=== PATIENT | female | born 1975 | race Caucasian/White ===

== ENCOUNTER 2017-01-05 08:25 | Inpatient (IN) | payer OTHER ==
[2017-01-05 09:25] VITALS: BMI 30.2
--- NOTE | 2017-01-05 10:25 | HP ---
Past Medical History - Primary Care Physician PCP:: Domi Cordoba - Admission Chief Complaint: 41 yrs ( AMA) ,[place] female, 39 weeks, previous c/ section x2, requests for repeat c/section History of Present Illness: PNC at , [facility], late registrant , wt gain 10 lbs . work uP: A Pos, Hbsag neg, Rubella pos, Quantiferon neg, Hiv neg, Gc/ Ct neg, GBS neg 1 Hr GTT 159, 3 Hr GTT( wnl) 85,153, 151,142. h/o proteinuria noted during AP period, 24 hr urine protein wnl -270 mg , HELLP work up wnl, PlT f/u was done NST were done in last 2 wks due to proteinuria sono done was normal done on 11/07/16 30.5 weeks , last sono on12/28/16 37.4 wks, MARY 10.7 wks, Bpp8/8, efw 3613 gm History Source: Patient, Medical Record Limitations to Obtaining History: No Limitations - Past Medical History COAT CUTTER: No: Migraine, Seizure Cardiovascular: No: HTN, Murmur Pulmonary: Yes: Asthma (last attack 12/30/16) Gastrointestinal: Yes: Gastritis. No: Constipation ...: 5 ...Para: 2 ...Term: 2 ...: 0 ...Spon : 2 ...Induced : 0 ...Multiple Gestation: 0 ... Weeks Gestation by Dates: 39 (edc is assigned by sono on 11/07/16 sono 30.5 weeks due to dates & size , difference ) ...EDC by Sono: 01/11/17 Additional OB History: 40 weeks, c/section [facility] 27/10/2010 40 weeks, repeat c/sectio, [facility] Heme/Onc: No: Anemia Infectious Disease: No: HIV, STD's Psych: No: Addictions, Anxiety, Bipolar, Depression, Panic Endocrine: No: Diabetes Insipidus, Diabetes Mellitus - Past Surgical History Past Surgical History: Yes: (07/13, 12/13) Hx Myomectomy: No Hx Transabdominal Cerclage: No - Smoking History Smoking history: Never smoked Have you smoked in the past 12 months: No - Alcohol/Substance Use Hx Alcohol Use: No History of Substance Use: reports: None - Social History History of Recent Travel: No Home Medications - Allergies Allergies/Adverse Reactions: Allergies Allergy/AdvReac Type Severity Reaction Status Date / Time famotidine [From Pepcid] AdvReac Mild Verified 01/05/17 09:36 ranitidine HCl [From Zantac] AdvReac Mild Verified 01/05/17 09:36 nuts Allergy Severe Swelling Uncoded 01/05/17 09:47 - Home Medications Home Medications: Ambulatory Orders Budesonide/Formeterol Fumarate [SYMBICORT 160/4.5mcg -] 1 inh PO DAILY 12/28/16 Ferrous Sulfate 325 mg PO DAILY 12/28/16 Tablet 1 mg PO DAILY 12/28/16 Physical Exam - Maternity Vital Signs: Vital Signs Temperature 97.8 F 01/05/17 08:25 Pulse Rate 95 H 01/05/17 08:25 Respiratory Rate 18 01/05/17 08:25 Blood Pressure 130/80 01/05/17 08:25 O2 Sat by Pulse Oximetry (%) Constitutional: Yes: Well Nourished, No Distress Eyes: Yes: WNL HENT: Yes: WNL, Normocephalic Neck: Yes: WNL Cardiovascular: Yes: WNL, Regular Rate and Rhythm Lungs: Clear to auscultation Breast(s): Yes: WNL - Abdominal Exam/OB Fundal Height: 38 Number of Fetuses: Single Presentation: Vertex Contractions: Yes Regularity: Irregular Intensity: Unaware Monitor Mode: External Heart Rate (range): 150 Heart Rate Location: [facility] Category: I Accelerations: Uniform Decelerations: None - Vaginal Exam/OB Vaginal Bleediing: No Speculum Exam: No Dilatation (cm): close Effacement (%): unefface Amniotic Membrane Status: Intact Presentation: Vertex/Position Station: -3 - Physical Exam Musculoskeletal: Yes: WNL Extremities: Yes: WNL. No: Calf Tenderness Edema: Yes Edema: LLE: 1+, RLE: 1+ Integumentary: Yes: Incision (old pfannensteil scar) Deep Tendon Reflex Grade: Normal +2 ...Motor Strength: WNL Psychiatric: Yes: WNL, Alert, Oriented - Labs Lab Results: Laboratory Tests 11/29/10 12/06/10 12/28/16 13:28 09:00 12:20 WBC RBC Hgb Hct Plt Count Lymphocytes # 20.5 Basophils # 0.6 Neutrophils % INR Sodium Serum Potassium 4.0 Potassium Chloride Carbon Dioxide BUN Creatinine Random Glucose Uric Acid 5.8 Calcium GGT 27 AST ALT Urine Protein Urine Ketones Ur Leukocyte Esterase Urine RBC Urine WBC RPR Titer 01/03/17 01/03/17 01/03/17 11:53 11:53 11:53 WBC 8.0 RBC 4.10 Hgb 12.9 Hct 36.9 Plt Count 140 Lymphocytes # Basophils # Neutrophils % 72.3 INR 0.97 Sodium 137 Serum Potassium Potassium 3.7 Chloride 102 Carbon Dioxide 21 BUN 8 Creatinine 0.6 Random Glucose 126 H Uric Acid Calcium 8.6 GGT AST 14 L ALT 17 Urine Protein Urine Ketones Ur Leukocyte Esterase Urine RBC Urine WBC RPR Titer 01/03/17 01/03/17 11:53 11:53 WBC RBC Hgb Hct Plt Count Lymphocytes # Basophils # Neutrophils % INR Sodium Serum Potassium Potassium Chloride Carbon Dioxide BUN Creatinine Random Glucose Uric Acid Calcium GGT AST ALT Urine Protein 1+ H Urine Ketones 1+ H Ur Leukocyte Esterase 2+ H Urine RBC 5 Urine WBC 9 RPR Titer Nonreactive Problem List - Problems (1) with 39 completed weeks gestation Code(s): Z3A.39 - 39 WEEKS GESTATION OF (2) Previous section complicating Code(s): O34.219 - MATERNAL CARE FOR UNSP TYPE SCAR FROM PREVIOUS DEL (3) AMA (advanced maternal age) multigravida 35+ Code(s): O09.529 - SUPERVISION OF ELDERLY MULTIGRAVIDA, UNSPECIFIED TRIMESTER Qualifiers: Trimester: unspecified trimester Qualified Code(s): O09.529 - Supervision of elderly multigravida, unspecified trimester Assessment/Plan 41 yrs (AMA) , 39 weeks, previous c/section x2 , requests for repeat c/ section, GBS neg Plan Repeat c/section .
[2017-01-05] MEDS ORDERED: morphine SULFATE/Preservative Free 0.5 MG/ML (1cc Syringe) EP ONE (10:43)
[2017-01-05] MEDS ORDERED: ELECTROLYTE-148 SOLN 500 ML IV ONE (11:00)
[2017-01-05] MEDS ORDERED: CITRIC ACID/SODIUM CITRATE 30 ML UNIT-DOSE CUP PO ONE (11:00)
[2017-01-05] MEDS ORDERED: IBUPROFEN 800 MG/8 ML IJ IVPB PRN (11:46)
[2017-01-05] MEDS ORDERED: ACETAMINOPHEN 325 MG TABLET (FP) PO PRN (11:46)
[2017-01-05] MEDS ORDERED: METHYLERGONOVINE MALEATE 0.2 MG/1 ML AMP IM PRN (11:46)
[2017-01-05] MEDS ORDERED: ONDANSETRON 4 MG/2 ML VIAL IVPB PRN (11:49)
[2017-01-05] MEDS ORDERED: IBUPROFEN 600 MG TABLET (FP) PO PRN (11:49)
[2017-01-05] MEDS ORDERED: D5W-LR W/ 20 UNITS OXYTOCIN 1,000 ML IV SCH (11:50)
--- NOTE | 2017-01-05 11:56 | PN ---
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 . PNC at , [facility]. Late registrant Intraop course was uneventful. 1 gm IVAncef prior to incision was given ,
[2017-01-05] MEDS ORDERED: ELECTROLYTE-148 SOLN 1,000 ML IV SCH (12:00)
--- NOTE | 2017-01-05 12:03 | OP ---
Operative Note - Note: Operative Date: 01/05/17 Pre-Operative Diagnosis: 39 weeks, previous c/sectionx2, requests repeat c/ section Operation: Repeat LFTC/section Findings: 10.57 am,Baby Girl, 9/10, /Wt7'4" //Vx/ROT Both tubes & ovaries normal Dr Mclaughlin Neonatolgist present in the room Surgeon: Domi Cordoba Rubber Insulator: Tahir Robles Anesthesiologist/CREDIT DEPARTMENT MANAGER: Freedom Fry Anesthesia: Spinal Specimens Removed: placenta. cord blood Estimated Blood Loss (mls): 500 (200ml ) Drains, Volume Out (mls): 200 (peters output, terell color ) Fluid Volume Replaced (mls): 2,300 (Iv Ancef 1 gm ivpb ) Operative Report Dictated: Yes
[2017-01-05] MEDS ORDERED: CEFAZOLIN (PRE-DOCKED) 50 ML IVPB ONE (16:50)
[2017-01-05] MEDS ORDERED: ALBUTEROL SO4 6.7 GM HFA INHALER IH PRN (16:53)
[2017-01-05] MEDS ORDERED: CEFAZOLIN 1 GM/D5W 50 ML IVPB SCH (18:00)
[2017-01-06] MEDS ORDERED: CEFAZOLIN (PRE-DOCKED) 50 ML IVPB ONE (02:00)
[2017-01-06] MEDS: IBUPROFEN 600 MG TABLET (FP) PO PRN ×2 (06:22→17:08)
[2017-01-06] MEDS: ACETAMINOPHEN 325 MG TABLET (FP) PO PRN ×2 (06:23→17:09)
[2017-01-06] MEDS ORDERED: oxyCODONE HCL 5 MG TABLET PO PRN ×2 (08:00)
[2017-01-06 08:11] LABS: BASOPHIL 0.3 % (0-2.0); EOSINOPHIL 0.7 % (0-4.5); MCH 31.6 pg (25.7-33.7); MCHC 34.7 g/dl (32.0-36.0); MEAN CELL VOLUME 90.9 fl (80-96); MEAN PLT VOLUME 8.1 fl (7.5-11.1); NEUTROPHILS 77.8 % (42.8-82.8); PLATELET COUNT 99 K/MM3 (134-434); RDW 15.6 % (11.6-15.6); WHITE BLOOD COUNT 10.8 K/mm3 (4.0-10.0)
--- NOTE | 2017-01-06 08:51 | PN ---
Progress Note, Physician Chief Complaint: Pt. ambulating and voiding, pain controlled, no anesthesia complaints. - Current Medication List Current Medications: Active Medications Acetaminophen (Tylenol -) 650 mg PO Q4H PRN PRN Reason: FEVER OR PAIN Last Admin: 01/06/17 06:23 Dose: 650 mg Acetaminophen (Tylenol -) 650 mg PO Q4H PRN PRN Reason: FEVER OR PAIN Albuterol Sulfate (Ventolin Hfa Inhaler -) 2 puff IH Q4H PRN PRN Reason: SHORTNESS OF BREATH Bisacodyl (Dulcolax Suppository -) 10 mg RC PRN PRN PRN Reason: CONSTIPATION Diphenhydramine HCl (Benadryl Injection -) 25 mg IVPUSH Q4H PRN PRN Reason: Pruritis Enoxaparin Sodium (Lovenox -) 40 mg SQ DAILY SIDDHARTHA Ferrous Sulfate (Feosol -) 325 mg PO BID [facility] Dextrose/Lactated Ringer's (Pitocin 20 Units In D5-Lr -) 1,000 mls @ 125 mls/ hr IV ASDIR SIDDHARTHA Last Admin: 01/05/17 11:50 Dose: 125 mls/hr Ibuprofen (Motrin -) 600 mg PO Q4H PRN PRN Reason: PAIN Last Admin: 01/06/17 06:22 Dose: 600 mg Ibuprofen (Caldolor Injection -) 800 mg IVPB Q8H PRN PRN Reason: PAIN OR FEVER Stop: 01/06/17 11:45 Last Admin: 01/05/17 12:46 Dose: 800 mg Methylergonovine Maleate (Methergine Injection -) 0.2 mg IM Q4H PRN PRN Reason: Excessive Bleeding (L&D) Oxycodone HCl (Roxicodone -) 5 mg PO Q4H PRN PRN Reason: PAIN LEVEL 1-5 Oxycodone HCl (Roxicodone -) 10 mg PO Q4H PRN PRN Reason: PAIN LEVEL 6-10 Pneumococcal 13-Valent Conj Vacc (Prevnar 13 Syringe -) 0.5 ml IM .ONCE ONE Stop: 01/06/17 14:01 Multivit/Folic Acid/Iron ( Vitamins ([facility]) -) 1 tab PO DAILY SIDDHARTHA Senna/Docusate Sodium (Pericolace -) 2 tablet PO HS PRN PRN Reason: CONSTIPATION Simethicone (Mylicon -) 80 mg PO Q4H PRN PRN Reason: GAS - Objective Vital Signs: Vital Signs Temperature 98.5 F 01/06/17 06:00 Pulse Rate 91 H 01/06/17 06:00 Respiratory Rate 20 01/06/17 06:06 Blood Pressure 111/68 01/06/17 06:00 O2 Sat by Pulse Oximetry (%) 100 01/05/17 12:30 Constitutional: Yes: Well Nourished, No Distress, Calm Musculoskeletal: Yes: WNL Neurological: Yes: WNL, Alert, Oriented ...Motor Strength: WNL Labs: CBC, BMP 01/06/17 07:25 Assessment/Plan POD#1 s/p repeat under spinal with duramporph. Doing well D/C from anesthesia care.
[2017-01-06] MEDS: PRENATAL VITAMINS W/ FOLIC ACID TABLET (FP) PO SCH (09:26)
[2017-01-06] MEDS: ENOXAPARIN NA (PORCINE) 40 MG/0.4 ML DISP.SYRIN SQ SCH (09:26)
--- NOTE | 2017-01-06 09:54 | PN ---
Progress Note (short form) - Note Progress Note: pod 1 s/p c/s c/o low abdominal cramps, no excess vaginal bleeding CBC, BMP 01/06/17 07:25 Last Vital Signs Temp Pulse Resp BP Pulse Ox 98.5 F 91 H 20 102/60 100 01/06/17 07:30 01/06/17 07:30 01/06/17 08:00 01/06/17 07:30 01/05/17 12:30 abdomen soft , no distension, incisional tenderness incision dry. no calf tenderness no excess vaginal bleeding plan pain management, ambulate, advance diet
--- NOTE | 2017-01-06 11:11 | OP ---
DATE OF OPERATION: 01/05/2017 PREOPERATIVE DIAGNOSIS: At 39 weeks, previous sections x2, request for repeat section. OPERATION DONE: A repeat low flap transverse section. SURGEON: Karlene Murphy MD SPOUT TENDER SURGEON: DENYS Guzman ANESTHESIOLOGIST: Freedom Fry MD ANESTHESIA: Spinal. FINDINGS: This is a 41-year-old 5 para 2-0-2-2, 39 weeks , not in labor, request for repeat . PROCEDURE: Patient was taken to the operating room table. Spinal anesthesia was given. Back catheter was placed. Abdomen was painted and draped in the usual manner. Pfannenstiel incision was made through previous scar, the skin, subcutaneous tissue, and anterior rectus sheath was incised transversely. Bleeding points were clamped and cauterized. The rectus muscles were from the rectus sheath. Parietal peritoneum was opened vertically, lower flap of the peritoneum was incised transversely. The bladder was pushed down. Uterine segment was isolated, and lower uterine segment was incised transversely. Amniotic fluid was clear. Baby was delivered at 10:57 a.m. from ROT position. Apgars were 9, 10, and babys weight was 7 pounds, 4 ounces. Cord was clamped. Cord blood was collected. Dr. Marin, the roof plumber, was present in the room. Placenta was removed completely with the membranes. The uterine cavity was cleaned, and uterine incision was closed in 2 layers, first layer continuous locking with a Biosyn 0 suture, second layer was closed with a continuous intermittently locking and vertical mattress sutures with Biosyn 0 sutures. Hemostasis was checked. Bladder peritoneum was closed with Biosyn 0 suture. Both tubes and ovaries were normal. Irrigation was done. Then, closure of the abdomen was done. Before that, the sponge, instrument and need counts were correct. The parietal peritoneum was closed with Vicryl 0 suture. Muscles were approximated with interrupted Vicryl 0 sutures. Then, under the rectus sheath flaps, hemostasis was verified. Then, the rectus sheath was closed with a Vicryl 0 continuous suture. Hemostasis was checked in subcutaneous tissue. Then interrupted sutures were taken with subcutaneous tissue, and skin was approximated with brady. Pressure dressing was given. Blood clots were removed from the vagina. Patient was transferred to the recovery room in stable condition. Estimated blood loss was 500 mL. Urine output intraoperatively was 200 mL, terell colored. She received IV Ancef 1 g prior to the incision. KARLENE MURPHY M.D. [id number]
[2017-01-06] MEDS ORDERED: BISACODYL 10 MG SUPP.RECT RC PRN (13:21)
[2017-01-06] MEDS ORDERED: PNEUMOC 13-VAL CONJ-DIP CRM/PF 0.5 ML DISP.SYRIN IM ONE (14:00)
[2017-01-06] MEDS ORDERED: PNEUMOCOCCAL 23 VACCINE 0.5 ML VIAL IM ONE (15:30)
[2017-01-06] MEDS: SIMETHICONE 80 MG TAB.CHEW (FP) PO PRN (17:10)
[2017-01-06] MEDS: SENNOSIDES/DOCUSATE COMBO (SENNA PLUS) TABLET (UD) PO PRN (22:00)
[2017-01-06] MEDS: FERROUS SO4 325 MG TABLET (FP) PO SCH (22:01)
[2017-01-07] MEDS: SIMETHICONE 80 MG TAB.CHEW (FP) PO PRN (03:26)
[2017-01-07] MEDS: IBUPROFEN 600 MG TABLET (FP) PO PRN (03:27)
[2017-01-07] MEDS: PRENATAL VITAMINS W/ FOLIC ACID TABLET (FP) PO SCH (09:46)
[2017-01-07] MEDS: FERROUS SO4 325 MG TABLET (FP) PO SCH ×2 (09:46→21:21)
[2017-01-07] MEDS: ENOXAPARIN NA (PORCINE) 40 MG/0.4 ML DISP.SYRIN SQ SCH (09:49)
--- NOTE | 2017-01-07 09:55 | PN ---
Post Progress Note - Subjective Subjective: no complains, pain scale 4/10 Post Day: 2 Type of Delivery: Repeat C/S Vital Signs: Vital Signs Temperature 97.6 F 01/06/17 22:00 Pulse Rate 83 01/06/17 22:00 Respiratory Rate 18 01/06/17 22:00 Blood Pressure 130/80 01/06/17 22:00 O2 Sat by Pulse Oximetry (%) 100 01/05/17 12:30 Breast Exam: Yes: Soft. No: Engorged Uterus: Yes: Fundus Firm, Fundus below umbilicus Incision: Yes: [place] intact. No: Redness, Oozing Abdomen/GI: Yes: Abdomen soft, Passing flatus, Tolerating PO (diet). No: Abdominal Distention, Tender Lochia, amount: Moderate Extremities: Yes: Calves non-tender, Edema Perineum: Yes: Intact Activity: Ambulating - Labs Labs: CBC WBC 10.8 K/mm3 (4.0-10.0) H D 01/06/17 07:25 RBC 3.95 M/mm3 (3.60-5.2) 01/06/17 07:25 Hgb 12.5 GM/dL (10.7-15.3) 01/06/17 07:25 Hct 35.9 % (32.4-45.2) 01/06/17 07:25 MCV 90.9 fl (80-96) 01/06/17 07:25 MCHC 34.7 g/dl (32.0-36.0) 01/06/17 07:25 RDW 15.6 % (11.6-15.6) 01/06/17 07:25 Plt Count 99 K/MM3 (134-434) L D 01/06/17 07:25 MPV 8.1 fl (7.5-11.1) 01/06/17 07:25 Neutrophils % 77.8 % (42.8-82.8) 01/06/17 07:25 Lymphocytes % 15.4 % (8-40) D 01/06/17 07:25 Monocytes % 5.8 % (3.8-10.2) 01/06/17 07:25 Eosinophils % 0.7 % (0-4.5) 01/06/17 07:25 Basophils % 0.3 % (0-2.0) 01/06/17 07:25 Problem List - Problems (1) with 39 completed weeks gestation Code(s): Z3A.39 - 39 WEEKS GESTATION OF (2) Previous section complicating Code(s): O34.219 - MATERNAL CARE FOR UNSP TYPE SCAR FROM PREVIOUS DEL (3) AMA (advanced maternal age) multigravida 35+ Code(s): O09.529 - SUPERVISION OF ELDERLY MULTIGRAVIDA, UNSPECIFIED TRIMESTER Qualifiers: Trimester: unspecified trimester Qualified Code(s): O09.529 - Supervision of elderly multigravida, unspecified trimester Assessment/Plan stable. plan ct po care encourage ambulation,deep breathing
[2017-01-07] MEDS: SENNOSIDES/DOCUSATE COMBO (SENNA PLUS) TABLET (UD) PO PRN (21:21)
[2017-01-08] MEDS: IBUPROFEN 600 MG TABLET (FP) PO PRN (00:26)
[2017-01-08] MEDS: ACETAMINOPHEN 325 MG TABLET (FP) PO PRN (00:26)
[2017-01-08] MEDS: SIMETHICONE 80 MG TAB.CHEW (FP) PO PRN (00:27)
--- NOTE | 2017-01-08 04:54 | PN ---
Post Progress Note Post Day: 3 Type of Delivery: Repeat C/S Vital Signs: Vital Signs Temperature 98.2 F 01/07/17 20:20 Pulse Rate 85 01/07/17 20:20 Respiratory Rate 17 01/07/17 20:20 Blood Pressure 134/90 01/07/17 20:20 O2 Sat by Pulse Oximetry (%) 100 01/05/17 12:30 Breast Exam: Yes: Soft Uterus: Yes: Fundus Firm Incision: Yes: [place] intact Abdomen/GI: Yes: Abdomen soft Lochia: Yes: Rubra Lochia, amount: Small Extremities: Yes: Calves non-tender Perineum: Yes: Intact Activity: Ambulating - Labs Labs: CBC WBC 10.8 K/mm3 (4.0-10.0) H D 01/06/17 07:25 RBC 3.95 M/mm3 (3.60-5.2) 01/06/17 07:25 Hgb 12.5 GM/dL (10.7-15.3) 01/06/17 07:25 Hct 35.9 % (32.4-45.2) 01/06/17 07:25 MCV 90.9 fl (80-96) 01/06/17 07:25 MCHC 34.7 g/dl (32.0-36.0) 01/06/17 07:25 RDW 15.6 % (11.6-15.6) 01/06/17 07:25 Plt Count 99 K/MM3 (134-434) L D 01/06/17 07:25 MPV 8.1 fl (7.5-11.1) 01/06/17 07:25 Neutrophils % 77.8 % (42.8-82.8) 01/06/17 07:25 Lymphocytes % 15.4 % (8-40) D 01/06/17 07:25 Monocytes % 5.8 % (3.8-10.2) 01/06/17 07:25 Eosinophils % 0.7 % (0-4.5) 01/06/17 07:25 Basophils % 0.3 % (0-2.0) 01/06/17 07:25 Assessment/Plan reg diet oob continue po care
[2017-01-08 08:32] LABS: BASOPHIL 0.3 % (0-2.0); EOSINOPHIL 1.4 % (0-4.5); MCH 31.3 pg (25.7-33.7); MCHC 34.4 g/dl (32.0-36.0); MEAN CELL VOLUME 91.1 fl (80-96); MEAN PLT VOLUME 8.2 fl (7.5-11.1); NEUTROPHILS 71.8 % (42.8-82.8); PLATELET COUNT 121 K/MM3 (134-434); RDW 14.9 % (11.6-15.6); WHITE BLOOD COUNT 7.9 K/mm3 (4.0-10.0)
[2017-01-08] MEDS: PRENATAL VITAMINS W/ FOLIC ACID TABLET (FP) PO SCH (09:36)
[2017-01-08] MEDS: FERROUS SO4 325 MG TABLET (FP) PO SCH ×2 (09:36→21:12)
[2017-01-08] MEDS: ENOXAPARIN NA (PORCINE) 40 MG/0.4 ML DISP.SYRIN SQ SCH (09:36)
[2017-01-08] MEDS: SENNOSIDES/DOCUSATE COMBO (SENNA PLUS) TABLET (UD) PO PRN (21:12)
[2017-01-09 08:09] VITALS: BP 133/78; PULSE 82; TEMP 97.8
--- NOTE | 2017-01-09 08:54 | PN ---
Progress Note (short form) - Note Progress Note: pod 4 doing well, no excess vaginal bleeding CBC, BMP 01/08/17 08:10 Last Vital Signs Temp Pulse Resp BP Pulse Ox 97.8 F 82 20 133/78 100 01/09/17 08:07 01/09/17 08:07 01/09/17 08:07 01/09/17 08:07 01/05/17 12:30 abdomen soft, no distension, incision dry, clean no calf tenderness plan d/c home, rtc 1 week
[2017-01-09] MEDS: FERROUS SO4 325 MG TABLET (FP) PO SCH (09:22)
[2017-01-09] MEDS: PRENATAL VITAMINS W/ FOLIC ACID TABLET (FP) PO SCH (09:22)
[2017-01-09] MEDS: ENOXAPARIN NA (PORCINE) 40 MG/0.4 ML DISP.SYRIN SQ SCH (09:22)
--- NOTE | 2017-01-09 12:23 | PATH ---
Surgical Pathology Report Patient Name: ALFA HANKINS [facility]. Rec. #: [id number] /Age/Gender: 1975 (Age: 41) / F Account: [id number] Location: [facility] OBS/WELFARE INVESTIGATOR Taken: 01/05/2017 Received: 01/06/2017 Reported: 01/09/2017 Physicians: Domi Cordoba M.D. Specimen(s) Received PLACENTA Clinical History SAB x2 2010 Final Diagnosis PLACENTA, DELIVERY: FOCALLY DISRUPTED THIRD TRIMESTER PLACENTA WITH THREE VESSEL UMBILICAL CORD AND UNREMARKABLE PLACENTAL MEMBRANES. Electronically Signed Dudley French M.D. Gross Description The specimen is received fresh labeled placenta and is a 522 gram, 17.5 x 17.0 x 2.5 cm. placenta with attached membranes and umbilical cord. The attached membranes are rai, translucent with focal opacities and insert marginally. The umbilical cord measures 39 cm. in length and averages 1 cm. in diameter. The cord inserts eccentrically, 4.5 cm. to the nearest margin. No true knots or strictures are identified. Cut surface of the umbilical cord reveals 3 vessels. The surface is batista-blue with minimal fibrin deposition and appropriate caliber vessels. The maternal surface is red-brown with focal defects. Sectioning reveals red-brown, spongy parenchyma. No lesions are identified. Instructor Ballroom Dancing sections are submitted in three cassettes as follows: 1- membrane rolls and umbilical cord; 2-3- full thickness sections of placenta. /01/08/2017 [facility]01/08/2017
--- NOTE | 2017-01-11 08:44 | DS ---
Physical Exam-BELLMAN DRIVER Vital Signs: Vital Signs Temperature 97.8 F 01/09/17 08:07 Pulse Rate 82 01/09/17 08:07 Respiratory Rate 20 01/09/17 08:07 Blood Pressure 133/78 01/09/17 08:07 O2 Sat by Pulse Oximetry (%) 100 01/05/17 12:30 Constitutional: Yes: Well Nourished Eyes: Yes: WNL HENT: Yes: WNL Neck: Yes: WNL Cardiovascular: Yes: WNL Respiratory: Yes: WNL Gastrointestinal: Yes: WNL, Normal Bowel Sounds, Soft. No: Distention Renal/: Yes: WNL, Other (voiding without difficulty) Pelvis: Yes: WNL Cervix: Yes: Normal ....Post : Yes: Uterus firm, Moderate lochia rubra Breast(s): Yes: WNL Musculoskeletal: Yes: WNL Extremities: Yes: WNL. No: Calf Tenderness Edema: Yes Edema: LLE: 1+, RLE: 1+ Wound/Incision: Yes: Clean/Dry, Well Approximated, Steri Strips, Open to air, [place] Removed. 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 . PNC at [address] [place] [address]. Late registrant Intraop course was uneventful. 1 gm IVAncef prior to incision was given , post op course uneventful. discharged 01/09/17 Discharge Summary Reason For Visit: C/SECTION Condition: Stable - Instructions Diet, Activity, Other Instructions: Post Instructions DIET: Continue good diet high in protein, calcium, and iron rich foods. Drink at least eight (8) glasses of water daily in addition to other fluids. ct Regular diet MEDICATIONS: Continue vitamins and iron as previously directed. Motrin and Tylenol may be taken for minor discomfort. ACTIVITY: Mild to moderate exercise may be started in two (2) weeks. Take frequent rest periods. Resume normal activity after six (6) week check up. WOUND CARE OF OPERATIVE SITE: Continue use of perineal bottle until vaginal discharge stops. Keep area clean. Shower daily. Keep abdominal wound dry. Report any drainage or redness to physician. Tub baths, tampons and douches are not permitted for [address] Breast feeding & or Bottle feeding BREAST CARE: (For those that are not breast feeding): If engorgement occurs: Wear tight fitting bra. Take Tylenol or Motrin for pain. Apply cold packs (ice in bags to each breast ) FAMILY PLANNING: There are many control alternatives to pursue and they should be discussed at your first office visit. You may resume sexual activity after your six (6) week check up. (Remember, breast feeding is not a contraceptive) NEXT PHYSICIAN APPOINTMENT: Be certain to call for a one (1) week appointment, unless otherwise directed.for wound check Call Clinic or got to Emergency Dept if you have any of the following: Heavy vaginal bleeding Painful urination Leg pain Unusual odor noted to vaginal bleeding High fever Red streaking noted on breast return to clinic in 1 week. call [facility] for appointment. [phone] Referrals: Domi Cordoba MD [Staff Physician] - Disposition: HOME - Home Medications Comprehensive Discharge Medication List: Ambulatory Orders Ferrous Sulfate 325 mg PO DAILY 12/28/16 Tablet 1 mg PO DAILY 12/28/16 Acetaminophen [Tylenol .Regular Strength -] 650 mg PO Q4H PRN #0 tablet Acetaminophen [Tylenol .Regular Strength -] 650 mg PO Q4H PRN #0 tablet Albuterol Sulfate Inhaler - [Ventolin HFA Inhaler -] 2 puff IH Q4H PRN #1 inhaler 01/07/17 Ibuprofen [Motrin -] 600 mg PO Q4H PRN #30 tablet 01/07/17 Vitamins (Sjr) - 1 tab PO DAILY tablet 01/07/17
== END 2017-01-09 16:00 | disposition home or self-care (01) | DRG 540 ==
LOC: JLDR 08:25 → J3W 13:10
PROVIDERS: ADMIT Obstetrics & Gynecology; ATTEND Obstetrics & Gynecology
PROC: 10D00Z1 Extraction of Products of Conception, Low, Open Approach (ICD-10-PCS; principal; 2017-01-05)
DX: O34.211 Maternal care for low transverse scar from previous cesarean delivery (principal); Z3A.39 39 weeks gestation of pregnancy; Z37.0 Single live birth
CPT/HCPCS: 36415; 85025; 87086; 88307-TC; 90732; G0009